=== PATIENT | female | born 1980 | race American Indian/Alaskan Native ===

== ENCOUNTER 2017-07-04 08:39 | Emergency (ER) | payer OTHER ==
[2017-07-04 08:47] VITALS: BP 184/106
[2017-07-04] MEDS ORDERED: FLEXERIL PO ONE (10:53)
--- NOTE | 2017-07-04 10:59 | Emergency Department Report ---
HPI - General Chief Complaint: Extremity Injury, Lower Time Seen by Provider: 07/04/17 10:25 - HPI HPI: She is a 37-year-old female with no medical problems who presents to ED complaining of left foot pain 2 weeks. Patient states that she started experiencing foot pain about 2 weeks ago. She denies any injuries, trauma or falls. She denies loss of sensation to the foot ED Past Medical Hx - Past Medical History Hx Hypertension: Yes Additional medical history: HEART MURMUR/ PE LAST YEAR - Surgical History Additional Surgical History: TUBALECTOMY - Social History Smoking Status: Never Smoker Substance Use Type: None - Medications Home Medications: Home Medications Medication Instructions Recorded Confirmed Last Taken Type Cyclobenzaprine [Flexeril 10 MG 10 mg PO QHS #20 tablet 07/04/17 Unknown Rx TAB] ED Review of Systems ROS: Stated complaint: BOTTOM FOOT SORE Other details as noted in HPI Constitutional: denies: chills, fever Eyes: denies: eye pain, eye discharge, vision change ENT: denies: ear pain, throat pain Respiratory: denies: cough, shortness of breath, wheezing Cardiovascular: denies: chest pain, palpitations Endocrine: no symptoms reported Gastrointestinal: denies: abdominal pain, nausea, diarrhea Genitourinary: denies: urgency, dysuria, discharge Musculoskeletal: denies: back pain, joint swelling, arthralgia Skin: denies: rash, lesions Neurological: denies: headache, weakness, paresthesias Psychiatric: denies: anxiety, depression Hematological/Lymphatic: denies: easy bleeding, easy bruising Physical Exam - Physical Exam Vital Signs: Vital Signs 07/04/17 08:42 Temperature 98.2 F Pulse Rate 95 H Respiratory 18 Rate Blood Pressure 184/106 O2 Sat by Pulse 98 Oximetry Physical Exam: GENERAL: Alert and oriented x3, no apparent distress, Normal Gait, atraumatic. HEAD: Head is normocephalic and a-traumatic. NECK: Supple. Non edematous, No lymphadenopathy or thyromegaly. No C-spine tenderness, full range of motion LUNGS: Symetrical with respiration, No wheezing, no rales or crackles, CTAB. HEART: S1, S2 present, regular rate and rhythm without murmur, no rubs, no gallops. Non tender to palpation EXTREMITIES/MUSCULOSKELETAL: No cyanosis, clubbing, rash, lesions or edema on all lower extremity joints. Full ROM bilaterally. UE/LE Pulses 2+ bilaterally. LE and UE 5+ strength bilaterally, mild tenderness to palpation of the sole of the foot, nontender Achilles. NEUROLOGIC: The patient is cooperative with no focal neurologic deficits. SKIN: Warm and dry, No lesions, No ulceration or induration present. ED Course Vital Signs 07/04/17 08:42 Temperature 98.2 F Pulse Rate 95 H Respiratory 18 Rate Blood Pressure 184/106 O2 Sat by Pulse 98 Oximetry ED Medical Decision Making - Medical Decision Making 39-year-old female presents to ED with left foot pain ED course: Patient received Flexeril in ED. Vital signs are normal patient is in no acute distress Discussed with patient follow-up with primary care physician. I discussed the patient to take her blood pressure medication upon going home. Patient states she will as she has not taken any today. She denies any symptoms such as headache, blurred vision, chest pain Discussed the patient and take medications as prescribed. Patient has no neurological deficit. Patient is alert and oriented 3 and understands all instructions given. Discussed drowsiness effect of Flexeril makes her drowsy and not to operate machinery while taking flexeril Critical care attestation.: If time is entered above; I have spent that time in minutes in the direct care of this critically ill patient, excluding procedure time. ED Disposition Clinical Impression: Foot pain, left Disposition: DC-01 TO HOME OR SELFCARE Is pt being admited?: No Does the pt Need Aspirin: No Condition: Stable Instructions: Arthralgia (ED) Additional Instructions: Make sure to follow up with the primary care physician as discussed. Take all your medications as you've been prescribed. If you have any worsening symptoms or develop new symptoms please return to ED immediately. Prescriptions: Cyclobenzaprine [Flexeril 10 MG TAB] 10 mg PO QHS #20 tablet Referrals: PRIMARY CARE, [Primary Care Provider] - 3-5 Days [facility] [Outside] - 3-5 Days [facility] [Outside] - 3-5 Days [facility] [Outside] - 3-5 Days [facility] [Outside] - 3-5 Days Forms: Work/School Release Form(ED) Time of Disposition: 11:16
== END 2017-07-04 11:27 | disposition home or self-care (01) ==
LOC: ED 08:39
DX: M79.672 Pain in left foot (principal); I10 Essential (primary) hypertension
CPT/HCPCS: 99282

== ENCOUNTER 2017-08-29 05:33 | Emergency (ER) | payer SELFPAY ==
[2017-08-29] MEDS ORDERED: TYLENOL ONE (05:44)
[2017-08-29] MEDS ORDERED: TYLENOL PO ONE (05:50)
--- NOTE | 2017-08-29 09:23 | Emergency Department Report ---
ED Headache HPI - General Chief Complaint: Headache Stated Complaint: STIFF NECK Time Seen by Provider: 08/29/17 08:12 - History of Present Illness Initial Comments: This is a 37-year-old -[place] female presents with headache that is radiating to the neck with nausea that started yesterday while at work. Patient has a history of hypertension and currently take an amlodipine and benazepril. Patient reports began almost completely out of medication and stopped taking blood pressure medications for a couple weeks. She started back taking medication Sunday when she started feeling lightheaded and started having frequent headaches. She is currently taking Tylenol which will help at times but symptoms returned. Patient reports feeling nauseous with headaches and having pain around temporal area and pressure behind eyes. Reports headache is worse with light and with standing. Patient reports feeling dizzy with standing and unable to report to work today due to dizziness. She currently does not have a primary care provider to follow up for refills because she has no insurance. Denies chest pain, shortness of breath, fever, and vomiting. Timing/Duration: 24 hours Quality: constant, pressure, stabbing Head Injury Location: temporal Recent Head Trauma: no recent headache/trauma Modifying Factors: improves with: exposure to light (worse since with exposure to light ), medication (improves with NSAIDs) Associated Symptoms: facial pain, stiff neck, other (dizziness). denies: confusion, fatigue, fever/chills, flushing, loss of consciousness, nausea/ vomiting, nasal congestion, nasal drainage, numbness in legs/feet, rash, seizures, sinus infection, vision changes, weakness Allergies/Adverse Reactions: Allergies No Known Allergies Allergy (Verified 08/29/17 05:48) Home Medications: Ambulatory Orders RX: Cyclobenzaprine [Flexeril 10 MG TAB] 10 mg PO QHS #20 tablet 07/04/17 RX: Benazepril HCl [Lotensin] 40 mg PO DAILY #30 tab 08/29/17 RX: Ibuprofen [Motrin 800 MG tab] 800 mg PO Q8HR PRN #15 tablet 08/29/17 RX: Losartan [Cozaar] 25 mg PO QDAY #30 tablet 08/29/17 RX: amLODIPine [Norvasc] 10 mg PO DAILY #30 tab 08/29/17 ED Review of Systems ROS: Stated complaint: STIFF NECK Other details as noted in HPI Constitutional: denies: chills, fever Respiratory: denies: cough, shortness of breath, wheezing Cardiovascular: denies: chest pain, palpitations Gastrointestinal: nausea. denies: abdominal pain, vomiting, diarrhea Neurological: headache, vertigo. denies: weakness, paresthesias Psychiatric: denies: anxiety, depression ED Past Medical Hx - Past Medical History Hx Hypertension: Yes Additional medical history: HEART MURMUR/ PE LAST YEAR - Surgical History Additional Surgical History: TUBALECTOMY - Social History Smoking Status: Never Smoker - Medications Home Medications: Home Medications Medication Instructions Recorded Confirmed Last Taken Type RX: Cyclobenzaprine [Flexeril 10 10 mg PO QHS #20 tablet 07/04/17 Unknown Rx MG TAB] RX: Benazepril HCl [Lotensin] 40 mg PO DAILY #30 tab 08/29/17 Unknown Rx RX: Ibuprofen [Motrin 800 MG tab] 800 mg PO Q8HR PRN #15 tablet 08/29/17 Unknown Rx RX: Losartan [Cozaar] 25 mg PO QDAY #30 tablet 08/29/17 Unknown Rx RX: amLODIPine [Norvasc] 10 mg PO DAILY #30 tab 08/29/17 Unknown Rx ED Physical Exam - General Limitations: No Limitations General appearance: alert, in no apparent distress - Eye Eye exam: Present: normal appearance, PERRL, EOMI Pupils: Present: normal accommodation - ENT ENT exam: Present: mucous membranes moist - Neck Neck exam: Present: normal inspection. Absent: lymphadenopathy - Respiratory Respiratory exam: Present: normal lung sounds bilaterally. Absent: respiratory distress - Cardiovascular Cardiovascular Exam: Present: regular rate, normal rhythm, normal heart sounds. Absent: systolic murmur, diastolic murmur, rubs, gallop - GI/Abdominal GI/Abdominal exam: Present: soft, normal bowel sounds. Absent: organomegaly, mass - Neurological Exam Neurological exam: Present: alert, oriented X3 - Psychiatric Psychiatric exam: Present: normal affect, normal mood - Skin Skin exam: Present: warm, dry, intact, normal color. Absent: rash ED Course Vital Signs 08/29/17 08/29/17 08/29/17 05:48 09:42 11:14 Temperature 98.3 F 98.2 F Pulse Rate 90 85 87 Respiratory 16 Rate Blood Pressure 151/110 Blood Pressure 186/118 167/102 [Left] Blood Pressure 171/114 165/111 [Right] O2 Sat by Pulse 100 100 100 Oximetry ED Medical Decision Making - Medical Decision Making This is a 37 y.o. female that presents with headache, eye pressure, and nausea for 1 day. History of HTN. Patient is noncompliant with blood pressure medication for a few weeks. She is about to run out of medication and has no insurance to get refills from primary care provider. Patient is stable and was examined by me. Given Tylenol 975 mg by mouth for headache pain and clonidine 0.1 mg by mouth once in the ER. Patient took personal blood pressure medication at 4 AM prior to coming in. Blood pressure is trending down and patient is asymptomatic. Reevaluation reports feeling better, headache has resolved. Refill amlodipine 10 mg by mouth daily and benazepril 50 mg by mouth daily. Start losartan 25 mg by mouth daily and ibuprofen 800 mg po q6h prn # 15. PCP in 3-5 days at [facility]. Critical care attestation.: If time is entered above; I have spent that time in minutes in the direct care of this critically ill patient, excluding procedure time. ED Disposition Clinical Impression: Hypertension, uncontrolled Hypertension Qualifiers: Hypertension type: essential hypertension Qualified Code(s): I10 - Essential ( primary) hypertension Migraine Qualifiers: Migraine type: without aura Status migrainosus presence: without status migrainosus Intractability: not intractable Qualified Code(s): G43.009 - Migraine without aura, not intractable, without status migrainosus Disposition: DC-01 TO HOME OR SELFCARE Is pt being admited?: No Does the pt Need Aspirin: No Condition: Stable Instructions: Migraine Headache (ED), Hypertension (ED) Additional Instructions: Encourage avoid smoking to reduce cardiovascular risk. Moderate caffeine consumption is acceptable. Begin and maintain aerobic exercise, with a goal of at least 30 minutes of moderate intensity, dynamic aerobic exercise (walking, jogging, cycling, or swimming) 5 days per week to total 150 minutes as tolerated or recommended by a physician. Take medication daily as prescribed. Take medication at start of headache. Eat at scheduled times or 3 meals a day with snacks. Follow up with primary care provider in 24-72 hours at [facility]. Prescriptions: RX: amLODIPine [Norvasc] 10 mg PO DAILY #30 tab RX: Benazepril HCl [Lotensin] 40 mg PO DAILY #30 tab RX: Ibuprofen [Motrin 800 MG tab] 800 mg PO Q8HR PRN #15 tablet PRN Reason: Pain RX: Losartan [Cozaar] 25 mg PO QDAY #30 tablet Referrals: [facility] [Outside] - 3-5 Days [facility] [Outside] - 3-5 Days [facility] [Outside] - 3-5 Days Forms: Work/School Release Form(ED) Time of Disposition: 11:34 Print Language: BERMUDIAN
[2017-08-29] MEDS ORDERED: CATAPRES PO ONE (10:01)
[2017-08-29 11:15] VITALS: BP 167/102
== END 2017-08-29 12:01 | disposition home or self-care (01) ==
LOC: ED 05:33
DX: G43.909 Migraine, unspecified, not intractable, without status migrainosus (principal); I10 Essential (primary) hypertension

== ENCOUNTER 2017-10-22 11:16 | Emergency (ER) | payer SELFPAY ==
[2017-10-22] MEDS ORDERED: CATAPRES ONE (11:56)
[2017-10-22] MEDS ORDERED: CATAPRES PO ONE (12:00)
[2017-10-22 12:18] LABS: Hematocrit 33.4 % (30.3-42.9); Hemoglobin 10.6 gm/dl (10.1-14.3); Mean Corpuscular HGB Conc 32 % (30-34); Platelet Count 482 K/mm3 (140-440); Red Blood Count 5.46 M/mm3 (3.65-5.03)
[2017-10-22 12:22] LABS: Mean Corpuscular Hemoglobin 20 pg (28-32); Mean Corpuscular Volume 61 fl (79-97); Red Cell Distribution Width 22.5 % (13.2-15.2)
[2017-10-22] MEDS ORDERED: NORMODYNE IV ONE ×2 (12:41→15:18)
[2017-10-22 12:42] LABS: BUN/Creatinine Ratio 9; Blood Urea Nitrogen 8 mg/dL (7-17); Calcium 8.9 mg/dL (8.4-10.2); Hemolysis Index 5
--- NOTE | 2017-10-22 12:48 | Emergency Department Report ---
HPI - General Chief Complaint: High BP Time Seen by Provider: 10/22/17 12:27 - HPI HPI: 37-year-old female presents to the emergency department with complaint of uncontrolled blood pressure despite medication compliance. She also complains of chronic left foot pain that has been going on for the past few months. The patient is on benazepril, amlodipine, hydrochlorothiazide and labetalol and she seems to be at the highest doses of these medications. She has been taking her blood pressure and keeping a blood pressure log and says that her blood pressure has remained elevated and therefore on certain days she doubles up on some not all of these medications. Patient says that she has had a left foot evaluated in the past and the pain is mostly in the middle bottom portion of the foot and then going back towards the heel. She says that she walks around on her feet all day but otherwise denies any trauma. She denies any chest pain, headache, vision change, shortness of breath. She's been taking Aleve for the foot pain without much relief. She is trying to get in with [facility] but does not have an appointment until the end of the month. She denies any tobacco or illicit drug use or abuse. ED Past Medical Hx - Past Medical History Previous Medical History?: Yes Hx Hypertension: Yes Additional medical history: HEART MURMUR/ PE LAST YEAR. PCOS - Surgical History Past Surgical History?: Yes Additional Surgical History: TUBALECTOMY - Social History Smoking Status: Never Smoker Substance Use Type: None - Medications Home Medications: Home Medications Medication Instructions Recorded Confirmed Last Taken Type Benazepril HCl [Lotensin] 40 mg PO DAILY #30 tab 10/22/17 Unknown Rx HYDROcodone/APAP 5-325 [[place] 1 each PO Q6HR PRN #10 tablet 10/22/17 Unknown Rx 5/325] Hydrochlorothiazide [HCTZ] 25 mg PO QDAY #30 tablet 10/22/17 Unknown Rx Labetalol [Normodyne TAB] 100 mg PO BID #60 tablet 10/22/17 Unknown Rx amLODIPine [Norvasc] 10 mg PO DAILY #30 tab 10/22/17 Unknown Rx ED Review of Systems ROS: Stated complaint: MIDDLE BACK PAIN Other details as noted in HPI Comment: All other systems reviewed and negative Constitutional: denies: chills, fever Eyes: denies: eye pain, eye discharge, vision change ENT: denies: ear pain, throat pain Respiratory: denies: cough, shortness of breath, wheezing Cardiovascular: denies: chest pain, palpitations Gastrointestinal: denies: abdominal pain, nausea, diarrhea Genitourinary: denies: urgency, dysuria, discharge Musculoskeletal: arthralgia. denies: joint swelling Skin: denies: rash, lesions Neurological: denies: headache, weakness, paresthesias Physical Exam - Physical Exam Vital Signs: Vital Signs 10/22/17 10/22/17 10/22/17 11:45 12:01 12:20 Temperature 98.4 F 98.4 F Pulse Rate 94 H 94 H 86 Respiratory 16 16 Rate Blood Pressure 200/128 200/128 Blood Pressure 183/115 [Left] O2 Sat by Pulse 99 98 Oximetry Physical Exam: GENERAL: The patient is well-developed well-nourished. HENT: Normocephalic. Atraumatic. Patient has moist mucous membranes. EYES: Extraocular motions are intact. Pupils equal reactive to light bilaterally. NECK: Supple. Trachea is midline. CHEST/LUNGS: Clear to auscultation. There is no respiratory distress noted. HEART/CARDIOVASCULAR: Regular. There is no tachycardia. There is no murmur. ABDOMEN: Abdomen is soft, nontender. Patient has normal bowel sounds. Morbidly obese habitus. SKIN: Skin is warm and dry. NEURO: The patient is awake, alert, and oriented. The patient is cooperative. The patient has no focal neurologic deficits. The patient has normal speech. MUSCULOSKELETAL: There is some tenderness to palpation along the plantar portion of the left foot from the mid foot to the heel. No obvious deformity.. There is no limitation range of motion. ED Course Vital Signs 10/22/17 10/22/17 10/22/17 11:45 12:01 12:20 Temperature 98.4 F 98.4 F Pulse Rate 94 H 94 H 86 Respiratory 16 16 Rate Blood Pressure 200/128 200/128 Blood Pressure 183/115 [Left] O2 Sat by Pulse 99 98 Oximetry ED Medical Decision Making - Lab Data Result diagrams: 10/22/17 12:00 10/22/17 12:00 - EKG Data -: EKG Interpreted by Ri EKG shows normal: sinus rhythm, axis, intervals, QRS complexes, ST-T waves Rate: normal - EKG Data When compared to previous EKG there are: previous EKG unavailable Interpretation: normal EKG - Radiology Data Radiology results: image reviewed interpreted by me: Chest x-ray does not show any acute process. There are no pleural effusions, obvious pneumonia and there is no pneumothorax. X-ray of left foot does not show any fracture, desiccation and a acute process. - Medical Decision Making Patient presents with complaints of left foot pain has been going on for months as well as uncontrolled blood pressure. X-ray of the left foot does not show any fracture, dislocation or any acute process. There is some reproducible tenderness to palpation along the plantar portion of the foot. Symptoms sound consistent with plantar fasciitis. She will be given some pain medication and a referral for podiatry. Patient's blood pressure was quite elevated. She had an EKG that did not show any signs of ST elevation [place] or dysrhythmia or ischemia. Chest x-ray did not show any acute process. Patient's labs were also unremarkable. She was given a few doses of antihypertensive medication with some improvement. She has no chest pain, shortness of breath, headache or any other acute complaints at this time. She has an appointment scheduled for [facility]. We discussed possible lifestyle and/or dietary changes to make, keeping a blood pressure log. She will return to the ER with any worsening of her symptoms or any acute distress. She understands and agrees the plan. - Differential Diagnosis arthritis, plantar fasciitis, tendinitis Critical Care Time: No Critical care attestation.: If time is entered above; I have spent that time in minutes in the direct care of this critically ill patient, excluding procedure time. ED Disposition Clinical Impression: Left foot pain, Plantar fasciitis of left foot Hypertension Qualifiers: Hypertension type: essential hypertension Qualified Code(s): I10 - Essential ( primary) hypertension Disposition: DC-01 TO HOME OR SELFCARE Is pt being admited?: No Condition: Stable Instructions: Plantar Fasciitis (ED), Hypertension (ED) Additional Instructions: Please follow up with a primary care physician as soon as possible. I have given her a referral for a local staff educator, Dr. Loving, regarding your elevated blood pressure. I have given you a referral for a local underwater trapper, Dr. Carlos, regarding your foot pain and suspicion of plantar fasciitis. Return to the emergency Department with any worsening of your symptoms or any acute distress. Try and stay away from foods that are high in salt and caffeinated products to help with your blood pressure. Keep a blood pressure log. You have been prescribed a medication that is sedating and therefore should not be taken prior to driving, working, and responsible for children and in no way should be mixed with alcohol of any quantity. Prescriptions: amLODIPine [Norvasc] 10 mg PO DAILY #30 tab Benazepril HCl [Lotensin] 40 mg PO DAILY #30 tab Hydrochlorothiazide [HCTZ] 25 mg PO QDAY #30 tablet HYDROcodone/APAP 5-325 [[place] 5/325] 1 each PO Q6HR PRN #10 tablet PRN Reason: Pain Labetalol [Normodyne TAB] 100 mg PO BID #60 tablet Referrals: SHAYY LOVING MD [Staff Physician] - 2-3 Days ELIAZBETH CARLOS DPM [Staff Physician] - 2-3 Days [facility] Time of Disposition: 16:18
[2017-10-22 13:26] LABS: Anisocytosis 2+; Basophils % (Manual) 0 % (0.0-1.8); Hypochromasia 2+; Total Cells Counted 100
[2017-10-22 13:27] LABS: Platelet Estimate Cons; Poikilocytosis 1+; Target Cells 1+; Tear Drop Cells Few
--- NOTE | 2017-10-22 13:39 | XRay Report ---
AP CHEST: HISTORY: Shortness of breath AP view of the chest demonstrates a normal mediastinal and cardiac contour with clear lungs and normal bony and soft tissue structures. IMPRESSION: Unremarkable AP chest.
--- NOTE | 2017-10-22 14:07 | XRay Report ---
LEFT FOOT, 3 views: History: Foot pain. The bony architecture is intact. Bony alignment is normal. No soft tissue abnormalities are seen. The joint spaces appear preserved. Moderate plantar spur is identified. IMPRESSION: Plantar spur.
[2017-10-22 17:07] VITALS: BP 148/103
== END 2017-10-22 17:07 | disposition home or self-care (01) ==
LOC: ED 11:16
DX: I10 Essential (primary) hypertension (principal); M72.2 Plantar fascial fibromatosis; Z90.79 Acquired absence of other genital organ(s)
CPT/HCPCS: 36415; 71045; 80048; 84484; 84703; 85007; 85025; 93005; 93010; 96374; 96376

== ENCOUNTER 2017-11-18 09:49 | Emergency (ER) | payer SELFPAY ==
[2017-11-18 10:02] VITALS: BP 178/110
[2017-11-18] MEDS ORDERED: MOTRIN PO ONE (10:20)
--- NOTE | 2017-11-18 10:25 | Emergency Department Report ---
ED ENT HPI - General Chief complaint: Dental/Oral Stated complaint: LT FACE PAIN Time Seen by Provider: 11/18/17 10:14 Source: patient Mode of arrival: Ambulatory Limitations: No Limitations - History of Present Illness Initial comments: This is a 37-year-old female nontoxic, well nourished in appearance, no acute signs of distress presents to the ED with c/o of right upper toothache 3 days. Patient denies following up with a dentist. Patient stated she believes she has an abscess. Patient stated that pain radiates from his job to his right side of head. Patient otherwise denies any head trauma. Patient describes toothache as aching level of 8 out of 10. Patient denies any facial swelling. Patient denies any numbness, tingling, fever, chills, headache, stiff neck, abdominal pain, chest pain, shortness of breath. Patient denies any drug allergies or significant past medical history. MD complaint: tooth pain -: days(s) (3) Location: tooth # 1 - pain here Severity: mild Severity scale (0 -10): 8 Quality: aching Consistency: constant Improves with: none Worsens with: none Context- Dental: history of dental caries, poor dental care Associated Symptoms: gum swelling, toothache. denies: fever, cough, pain with swallowing, sore throat, tinnitus, hearing loss, discharge from ear, rhinorrhea - Related Data Previous Rx's Medication Instructions Recorded Last Taken Type Benazepril HCl [Lotensin] 40 mg PO DAILY #30 tab 10/22/17 Unknown Rx HYDROcodone/APAP 5-325 [Percy 1 each PO Q6HR PRN #10 tablet 10/22/17 Unknown Rx 5/325] Labetalol [Normodyne TAB] 100 mg PO BID #60 tablet 10/22/17 Unknown Rx amLODIPine [Norvasc] 10 mg PO DAILY #30 tab 10/22/17 Unknown Rx hydroCHLOROthiazide [HCTZ] 25 mg PO QDAY #30 tablet 10/22/17 Unknown Rx Acetaminophen/Codeine [Tylenol 1 tab PO Q6H PRN #12 tab 11/18/17 Unknown Rx /Codeine # 3 tab] Amoxicillin/K Clav Tab [Augmentin 1 tab PO Q12HR #20 tab 11/18/17 Unknown Rx 875 mg] Chlorhexidine Mouthwash [Peridex] 15 ml MM BID #1 bottle 11/18/17 Unknown Rx Ibuprofen [Motrin] 600 mg PO Q8H PRN #30 tablet 11/18/17 Unknown Rx Allergies Allergy/AdvReac Type Severity Reaction Status Date / Time No Known Allergies Allergy Verified 08/29/17 05:48 ED Dental HPI - General Chief complaint: Dental/Oral Stated complaint: LT FACE PAIN Time Seen by Provider: 11/18/17 10:14 Source: patient Mode of arrival: Ambulatory Limitations: No Limitations - Related Data Previous Rx's Medication Instructions Recorded Last Taken Type Benazepril HCl [Lotensin] 40 mg PO DAILY #30 tab 10/22/17 Unknown Rx HYDROcodone/APAP 5-325 [Percy 1 each PO Q6HR PRN #10 tablet 10/22/17 Unknown Rx 5/325] Labetalol [Normodyne TAB] 100 mg PO BID #60 tablet 10/22/17 Unknown Rx amLODIPine [Norvasc] 10 mg PO DAILY #30 tab 10/22/17 Unknown Rx hydroCHLOROthiazide [HCTZ] 25 mg PO QDAY #30 tablet 10/22/17 Unknown Rx Acetaminophen/Codeine [Tylenol 1 tab PO Q6H PRN #12 tab 11/18/17 Unknown Rx /Codeine # 3 tab] Amoxicillin/K Clav Tab [Augmentin 1 tab PO Q12HR #20 tab 11/18/17 Unknown Rx 875 mg] Chlorhexidine Mouthwash [Peridex] 15 ml MM BID #1 bottle 11/18/17 Unknown Rx Ibuprofen [Motrin] 600 mg PO Q8H PRN #30 tablet 11/18/17 Unknown Rx Allergies Allergy/AdvReac Type Severity Reaction Status Date / Time No Known Allergies Allergy Verified 08/29/17 05:48 ED Review of Systems ROS: Stated complaint: LT FACE PAIN Other details as noted in HPI Constitutional: denies: chills, fever Eyes: denies: eye pain, eye discharge, vision change ENT: dental pain. denies: ear pain, throat pain Respiratory: denies: cough, shortness of breath, wheezing Cardiovascular: denies: chest pain, palpitations Endocrine: no symptoms reported Gastrointestinal: denies: abdominal pain, nausea, diarrhea Genitourinary: denies: urgency, dysuria, discharge Musculoskeletal: denies: back pain, joint swelling, arthralgia Skin: denies: rash, lesions Neurological: denies: headache, weakness, paresthesias Psychiatric: denies: anxiety, depression Hematological/Lymphatic: denies: easy bleeding, easy bruising ED Past Medical Hx - Past Medical History Previous Medical History?: Yes Hx Hypertension: Yes Additional medical history: HEART MURMUR/ PE LAST YEAR. PCOS - Surgical History Past Surgical History?: Yes Additional Surgical History: TUBALECTOMY - Social History Smoking Status: Never Smoker Substance Use Type: None - Medications Home Medications: Home Medications Medication Instructions Recorded Confirmed Last Taken Type Benazepril HCl [Lotensin] 40 mg PO DAILY #30 tab 10/22/17 Unknown Rx HYDROcodone/APAP 5-325 [Percy 1 each PO Q6HR PRN #10 tablet 10/22/17 Unknown Rx 5/325] Labetalol [Normodyne TAB] 100 mg PO BID #60 tablet 10/22/17 Unknown Rx amLODIPine [Norvasc] 10 mg PO DAILY #30 tab 10/22/17 Unknown Rx hydroCHLOROthiazide [HCTZ] 25 mg PO QDAY #30 tablet 10/22/17 Unknown Rx Acetaminophen/Codeine [Tylenol 1 tab PO Q6H PRN #12 tab 11/18/17 Unknown Rx /Codeine # 3 tab] Amoxicillin/K Clav Tab [Augmentin 1 tab PO Q12HR #20 tab 11/18/17 Unknown Rx 875 mg] Chlorhexidine Mouthwash [Peridex] 15 ml MM BID #1 bottle 11/18/17 Unknown Rx Ibuprofen [Motrin] 600 mg PO Q8H PRN #30 tablet 11/18/17 Unknown Rx ED Physical Exam - General Limitations: No Limitations General appearance: alert, in no apparent distress - Head Head exam: Present: atraumatic, normocephalic - Eye Eye exam: Present: normal appearance Pupils: Present: normal accommodation - ENT ENT exam: Present: normal orophraynx, mucous membranes moist - Expanded ENT Exam Expanded Ear exam: Present: normal external inspection Mouth exam: Present: normal external inspection, tongue normal. Absent: drooling, trismus, muffled voice, tongue elevation, laceration Teeth exam: Present: dental caries, fractured tooth #, dental tenderness #, gingival enlargement, other (no facial swelling. No abscess seen.) Throat exam: Positive: normal inspection, other (Uvual midline.). Negative: tonsillar erythema, tonsillomegaly, tonsillar exudate, R peritonsillar mass, L peritonsillar mass - Neck Neck exam: Present: normal inspection, full ROM. Absent: tenderness, meningismus, lymphadenopathy - Respiratory Respiratory exam: Present: normal lung sounds bilaterally. Absent: respiratory distress, wheezes, rales, rhonchi, stridor, chest wall tenderness, accessory muscle use, decreased breath sounds, prolonged expiratory - Cardiovascular Cardiovascular Exam: Present: regular rate, normal rhythm, normal heart sounds. Absent: irregular rhythm, systolic murmur, diastolic murmur, rubs, gallop - GI/Abdominal GI/Abdominal exam: Present: soft, normal bowel sounds - Extremities Exam Extremities exam: Present: normal inspection - Back Exam Back exam: Present: normal inspection - Neurological Exam Neurological exam: Present: alert, oriented X3 - Psychiatric Psychiatric exam: Present: normal affect, normal mood - Skin Skin exam: Present: warm, dry, intact, normal color. Absent: rash ED Course Vital Signs 11/18/17 10:00 Temperature 98.8 F Pulse Rate 96 H Respiratory 16 Rate Blood Pressure 178/110 O2 Sat by Pulse 98 Oximetry - Reevaluation(s) Reevaluation #1: 11/18/17 10:23 Patient is speaking in full sentences with no signs of distress noted. Critical care attestation.: If time is entered above; I have spent that time in minutes in the direct care of this critically ill patient, excluding procedure time. ED Disposition Clinical Impression: Dental caries, Gingivitis Disposition: DC-01 TO HOME OR SELFCARE Is pt being admited?: No Does the pt Need Aspirin: No Condition: Stable Instructions: Dental Caries (ED), Gingivitis (ED), Acetaminophen/Codeine (By mouth) Additional Instructions: Follow-up with a Dentist doctor in 3-5 days or if symptoms worsen and continue return to emergency room as soon as possible. Do not operate any machinery while taking Tylenol with codeine as this may cause drowsiness. Prescriptions: Acetaminophen/Codeine [Tylenol /Codeine # 3 tab] 1 tab PO Q6H PRN #12 tab PRN Reason: Pain , Severe (7-10) Amoxicillin/K Clav Tab [Augmentin 875 mg] 1 tab PO Q12HR #20 tab Chlorhexidine Mouthwash [Peridex] 15 ml MM BID #1 bottle Ibuprofen [Motrin] 600 mg PO Q8H PRN #30 tablet PRN Reason: Pain Referrals: PRIMARY CARE, [Referring] - 3-5 Days THIAGO COBURN MD [Staff Physician] - 3-5 Days [facility] [Outside] - 3-5 Days Forms: Work/School Release Form(ED)
== END 2017-11-18 10:33 | disposition home or self-care (01) ==
LOC: ED 09:49
DX: K02.9 Dental caries, unspecified (principal); K05.10 Chronic gingivitis, plaque induced; I10 Essential (primary) hypertension
CPT/HCPCS: 99282

== ENCOUNTER 2018-11-01 07:07 | Emergency (ER) | payer SELFPAY ==
[2018-11-01 07:19] VITALS: BP 166/94
--- NOTE | 2018-11-01 08:26 | Emergency Department Report ---
ED General Adult HPI - General Chief complaint: Allergic Reaction Stated complaint: ALLERGIC REACTION TO MEDS Time Seen by Provider: 11/01/18 07:51 Source: patient Mode of arrival: Ambulatory Limitations: No Limitations - History of Present Illness Initial comments: 38-year-old -[place] female status post department complaining of having possible reactions to medication. She started on losartan and labetalol for her hypertension. She has no history of hypertension. She takes hydrochlorothiazide and amlodipine. He was recently started on these previous the mentioned medications. She did take the medications as prescribed for the past 2 or 3 days and on yesterday in the evening she developed a cold, clammy, sweaty type sensation and some presyncope which lasted for several minutes, but she is unsure of what her blood sugar blood pressure was at that time. She is suspicious for having a reaction to the medication and seeks further guidance o treatment options. She hassymptoms at present. She reports no swollen lips, no coughing, no chest pain, no palpitations, no nausea no vomiting -: Sudden Radiation: non-radiation Improves with: none Worsens with: none Associated Symptoms: denies other symptoms - Related Data Previous Rx's Medication Instructions Recorded Last Taken Type Amoxicillin [Amoxicillin CAP] 250 mg PO Q8H #30 capsule 01/15/18 Unknown Rx Aspirin [Aspirin BABY CHEW TAB] 81 mg PO QDAY #30 tab.chew 01/15/18 Unknown Rx AtorvaSTATin [Lipitor] 40 mg PO QHS #30 tablet 01/15/18 Unknown Rx Famotidine [Pepcid] 20 mg PO BID #60 tablet 01/15/18 Unknown Rx Labetalol [Labetalol 100mg TAB] 300 mg PO Q8H #90 tablet 01/15/18 Unknown Rx Losartan [Cozaar] 100 mg PO QDAY #30 tablet 01/15/18 Unknown Rx Meclizine [Antivert] 25 mg PO Q8H PRN #30 tablet 01/15/18 Unknown Rx amLODIPine [Norvasc] 10 mg PO DAILY #30 tab 01/15/18 Unknown Rx hydroCHLOROthiazide [HCTZ] 25 mg PO QDAY #30 tablet 01/15/18 Unknown Rx metroNIDAZOLE [Flagyl TAB] 250 mg PO Q8H #30 tablet 01/15/18 Unknown Rx oxyCODONE /ACETAMINOPHEN [Percocet 1 tab PO Q6H PRN #10 tablet 01/15/18 Unknown Rx 5/325 mg] Allergies Allergy/AdvReac Type Severity Reaction Status Date / Time No Known Allergies Allergy Verified 08/29/17 05:48 ED Review of Systems ROS: Stated complaint: ALLERGIC REACTION TO MEDS Other details as noted in HPI Comment: All other systems reviewed and negative ED Past Medical Hx - Past Medical History Previous Medical History?: Yes Hx Hypertension: Yes Hx Congestive Heart Failure: No Hx Diabetes: No Hx Pulmonary Embolism: Yes Hx Asthma: No Hx COPD: No Additional medical history: HEART MURMUR/ PE LAST YEAR. PCOS, Morbid Obesity - Surgical History Past Surgical History?: Yes Additional Surgical History: TUBALECTOMY - Social History Smoking Status: Never Smoker - Medications Home Medications: Home Medications Medication Instructions Recorded Confirmed Last Taken Type Amoxicillin [Amoxicillin CAP] 250 mg PO Q8H #30 capsule 01/15/18 Unknown Rx Aspirin [Aspirin BABY CHEW TAB] 81 mg PO QDAY #30 tab.chew 01/15/18 Unknown Rx AtorvaSTATin [Lipitor] 40 mg PO QHS #30 tablet 01/15/18 Unknown Rx Famotidine [Pepcid] 20 mg PO BID #60 tablet 01/15/18 Unknown Rx Labetalol [Labetalol 100mg TAB] 300 mg PO Q8H #90 tablet 01/15/18 Unknown Rx Losartan [Cozaar] 100 mg PO QDAY #30 tablet 01/15/18 Unknown Rx Meclizine [Antivert] 25 mg PO Q8H PRN #30 tablet 01/15/18 Unknown Rx amLODIPine [Norvasc] 10 mg PO DAILY #30 tab 01/15/18 Unknown Rx hydroCHLOROthiazide [HCTZ] 25 mg PO QDAY #30 tablet 01/15/18 Unknown Rx metroNIDAZOLE [Flagyl TAB] 250 mg PO Q8H #30 tablet 01/15/18 Unknown Rx oxyCODONE /ACETAMINOPHEN [Percocet 1 tab PO Q6H PRN #10 tablet 01/15/18 Unknown Rx 5/325 mg] ED Physical Exam - General Limitations: No Limitations General appearance: alert, in no apparent distress - Head Head exam: Present: atraumatic, normocephalic - Eye Eye exam: Present: normal appearance - ENT ENT exam: Present: mucous membranes moist - Neck Neck exam: Present: normal inspection - Respiratory Respiratory exam: Present: normal lung sounds bilaterally. Absent: respiratory distress - Cardiovascular Cardiovascular Exam: Present: regular rate, normal rhythm. Absent: systolic murmur, diastolic murmur, rubs, gallop - GI/Abdominal GI/Abdominal exam: Present: soft, normal bowel sounds - Extremities Exam Extremities exam: Present: normal inspection - Back Exam Back exam: Present: normal inspection - Neurological Exam Neurological exam: Present: alert, oriented X3 - Psychiatric Psychiatric exam: Present: normal affect, normal mood - Skin Skin exam: Present: warm, dry, intact, normal color. Absent: rash ED Course Vital Signs 11/01/18 07:17 Temperature 98.1 F Pulse Rate 73 Respiratory 18 Rate Blood Pressure 166/94 O2 Sat by Pulse 98 Oximetry ED Medical Decision Making - Medical Decision Making 38-year-old full female with a likely reaction to medication issues with cramping pain which may be related to the losaran howerver may be unlikely in this early interaction with the medication. Advised of the need to evaluate her blood sugars. Blood pressure: She is experiencing the symptoms to increase her hydration and potassium intake as well. Follow-up with primary provider for reevaluation of these medications. She has not had any angioedema type symptomology or any coughing. Critical care attestation.: If time is entered above; I have spent that time in minutes in the direct care of this critically ill patient, excluding procedure time. ED Disposition Clinical Impression: Medication reaction Disposition: DC-01 TO HOME OR SELFCARE Is pt being admited?: No Does the pt Need Aspirin: No Condition: Stable Instructions: How to Take a Blood Pressure (ED), How to Check Your Blood Sugar (ED), DASH Eating Plan (ED), Hypertension (ED) Additional Instructions: Please be sure to evaluate her blood pressure and blood sugar at the time, we are having these new episodes of filling presyncope and clammy. Please consult her primary care provider for any adjustments of her hypertensive medication as we discussed some for the time being and take labetalol 2 times per day versus 3 times per day. Referrals: RONIT FAM MD [Primary Care Provider] - 3-5 Days
== END 2018-11-01 08:38 | disposition home or self-care (01) ==
LOC: ED 07:07
DX: T50.905A Adverse effect of unspecified drugs, medicaments and biological substances, initial encounter (principal); I10 Essential (primary) hypertension; Z90.89 Acquired absence of other organs; E28.2 Polycystic ovarian syndrome; E66.01 Morbid (severe) obesity due to excess calories; Z68.44 Body mass index [BMI] 60.0-69.9, adult; Z79.899 Other long term (current) drug therapy; Y92.9 Unspecified place or not applicable
CPT/HCPCS: 99282

== ENCOUNTER 2019-01-20 08:42 | Emergency (ER) | payer SELFPAY ==
--- NOTE | 2019-01-20 09:50 | Emergency Department Report ---
ED General Adult HPI - General Chief complaint: Neuro Symptoms/Deficit Stated complaint: HEADACHE/NAUSEA/BLUR VISION Time Seen by Provider: 01/20/19 09:49 Source: patient Mode of arrival: Ambulatory Limitations: No Limitations - History of Present Illness Initial comments: 38 yo female comes to ER with a/c headache. Associated with blurred vision. 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 ambulatory to the ER -: Gradual, days(s) Location: head Consistency: constant Improves with: none Worsens with: none Associated Symptoms: denies other symptoms - Related Data Previous Rx's Medication Instructions Recorded Last Taken Type Amoxicillin [Amoxicillin CAP] 250 mg PO Q8H #30 capsule 01/15/18 Unknown Rx Aspirin [Aspirin BABY CHEW TAB] 81 mg PO QDAY #30 tab.chew 01/15/18 Unknown Rx AtorvaSTATin [Lipitor] 40 mg PO QHS #30 tablet 01/15/18 Unknown Rx Famotidine [Pepcid] 20 mg PO BID #60 tablet 01/15/18 Unknown Rx Losartan [Cozaar] 100 mg PO QDAY #30 tablet 01/15/18 Unknown Rx Meclizine [Antivert] 25 mg PO Q8H PRN #30 tablet 01/15/18 Unknown Rx amLODIPine 10 mg PO DAILY #30 tab 01/15/18 Unknown Rx hydroCHLOROthiazide [HCTZ] 25 mg PO QDAY #30 tablet 01/15/18 Unknown Rx labetaloL [Labetalol 100mg TAB] 300 mg PO Q8H #90 tablet 01/15/18 Unknown Rx metroNIDAZOLE [Flagyl TAB] 250 mg PO Q8H #30 tablet 01/15/18 Unknown Rx oxyCODONE /ACETAMINOPHEN [Percocet 1 tab PO Q6H PRN #10 tablet 01/15/18 Unknown Rx 5/325 mg] Butalb/Acetaminophen/Caffeine 1 cap PO Q6HR PRN #9 cap 01/20/19 Unknown Rx [Fioricet 50-300-40 mg CAP] predniSONE [Deltasone] 20 mg PO DAILY #5 tablet 01/20/19 Unknown Rx Allergies Allergy/AdvReac Type Severity Reaction Status Date / Time No Known Allergies Allergy Verified 08/29/17 05:48 ED Review of Systems ROS: Stated complaint: HEADACHE/NAUSEA/BLUR VISION Other details as noted in HPI Comment: All other systems reviewed and negative ED Past Medical Hx - Past Medical History Previous Medical History?: Yes Hx Hypertension: Yes Hx Congestive Heart Failure: No Hx Diabetes: No Hx Pulmonary Embolism: Yes Hx Asthma: No Hx COPD: No Additional medical history: HEART MURMUR/ PE LAST YEAR. PCOS, Morbid Obesity - Surgical History Past Surgical History?: Yes Additional Surgical History: TUBALECTOMY - Family History Family history: no significant - Social History Smoking Status: Never Smoker Substance Use Type: None - Medications Home Medications: Home Medications Medication Instructions Recorded Confirmed Last Taken Type Amoxicillin [Amoxicillin CAP] 250 mg PO Q8H #30 capsule 01/15/18 Unknown Rx Aspirin [Aspirin BABY CHEW TAB] 81 mg PO QDAY #30 tab.chew 01/15/18 Unknown Rx AtorvaSTATin [Lipitor] 40 mg PO QHS #30 tablet 01/15/18 Unknown Rx Famotidine [Pepcid] 20 mg PO BID #60 tablet 01/15/18 Unknown Rx Losartan [Cozaar] 100 mg PO QDAY #30 tablet 01/15/18 Unknown Rx Meclizine [Antivert] 25 mg PO Q8H PRN #30 tablet 01/15/18 Unknown Rx amLODIPine 10 mg PO DAILY #30 tab 01/15/18 Unknown Rx hydroCHLOROthiazide [HCTZ] 25 mg PO QDAY #30 tablet 01/15/18 Unknown Rx labetaloL [Labetalol 100mg TAB] 300 mg PO Q8H #90 tablet 01/15/18 Unknown Rx metroNIDAZOLE [Flagyl TAB] 250 mg PO Q8H #30 tablet 01/15/18 Unknown Rx oxyCODONE /ACETAMINOPHEN [Percocet 1 tab PO Q6H PRN #10 tablet 01/15/18 Unknown Rx 5/325 mg] Butalb/Acetaminophen/Caffeine 1 cap PO Q6HR PRN #9 cap 01/20/19 Unknown Rx [Fioricet 50-300-40 mg CAP] predniSONE [Deltasone] 20 mg PO DAILY #5 tablet 01/20/19 Unknown Rx ED Physical Exam - General Limitations: No Limitations General appearance: alert, in no apparent distress - Head Head exam: Present: atraumatic, normocephalic - Eye Eye exam: Present: normal appearance - ENT ENT exam: Present: mucous membranes moist - Neck Neck exam: Present: normal inspection - Respiratory Respiratory exam: Present: normal lung sounds bilaterally. Absent: respiratory distress - Cardiovascular Cardiovascular Exam: Present: regular rate, normal rhythm. Absent: systolic murmur, diastolic murmur, rubs, gallop - GI/Abdominal GI/Abdominal exam: Present: soft, normal bowel sounds - Extremities Exam Extremities exam: Present: normal inspection - Back Exam Back exam: Present: normal inspection - Neurological Exam Neurological exam: Present: alert, oriented X3 - Psychiatric Psychiatric exam: Present: normal affect, normal mood - Skin Skin exam: Present: warm, dry, intact, normal color. Absent: rash ED Course Vital Signs 01/20/19 01/20/19 08:54 11:30 Temperature 97.8 F Pulse Rate 74 73 Respiratory 18 Rate Blood Pressure 176/107 154/94 Blood Pressure 154/94 [Left] O2 Sat by Pulse 100 Oximetry ED Medical Decision Making - Lab Data Result diagrams: 01/20/19 10:08 01/20/19 10:08 - Radiology Data Radiology results: report reviewed, image reviewed - Medical Decision Making Labs 01/20/19 01/20/19 01/20/19 10:08 10:08 10:08 WBC 5.9 RBC 5.42 H Hgb 11.3 Hct 35.5 MCV 66 L MCH 21 L MCHC 32 RDW 19.5 H Plt Count 497 H Sodium 138 Potassium 4.2 Chloride 104.1 Carbon Dioxide 23 Anion Gap 15 BUN 10 Creatinine 0.8 Estimated GFR > 60 BUN/Creatinine Ratio 13 Glucose 105 H Calcium 9.2 HCG, Qual Negative Urine Color Urine Turbidity Urine pH Ur Specific [place] Urine Protein Urine Glucose (UA) Urine Ketones Urine Blood Urine Nitrite Ur Reducing Substances Urine Bilirubin Urine Ictotest Urine Urobilinogen Ur Leukocyte Esterase Urine WBC (Auto) Urine RBC (Auto) U Epithel Cells (Auto) Urine Bacteria (Auto) Urine HCG, Qual 01/20/19 10:51 WBC RBC Hgb Hct MCV MCH MCHC RDW Plt Count Sodium Potassium Chloride Carbon Dioxide Anion Gap BUN Creatinine Estimated GFR BUN/Creatinine Ratio Glucose Calcium HCG, Qual Urine Color Yellow Urine Turbidity Clear Urine pH 6.0 Ur Specific [place] 1.010 Urine Protein 30 mg/dl Urine Glucose (UA) Negative Urine Ketones S Urine Blood Small A Urine Nitrite Negative Ur Reducing Substances Not Reportable Urine Bilirubin Negative Urine Ictotest Not Reportable Urine Urobilinogen 0.2 Ur Leukocyte Esterase Negative Urine WBC (Auto) 5.0 Urine RBC (Auto) 2.0 U Epithel Cells (Auto) 10.0 Urine Bacteria (Auto) 1+ Urine HCG, Qual Negative Vital Signs 01/20/19 01/20/19 08:54 11:30 Temperature 97.8 F Pulse Rate 74 73 Respiratory 18 Rate Blood Pressure 176/107 154/94 Blood Pressure 154/94 [Left] O2 Sat by Pulse 100 Oximetry no focal neuro def labs noted ct noted medicated for pain with relief of pain and dec in bp dc home with dc plan of care and follow up Critical care attestation.: If time is entered above; I have spent that time in minutes in the direct care of this critically ill patient, excluding procedure time. ED Disposition Clinical Impression: Headache, History of chronic hypertension Disposition: DC-01 TO HOME OR SELFCARE Is pt being admited?: No Does the pt Need Aspirin: No Condition: Stable Additional Instructions: low salt diet meds as ordered today ALL labs and CT normal today Prescriptions: predniSONE [Deltasone] 20 mg PO DAILY #5 tablet Butalb/Acetaminophen/Caffeine [Fioricet 50-300-40 mg CAP] 1 cap PO Q6HR PRN #9 cap PRN Reason: Pain, Moderate (4-6) Referrals: PRIMARY CARE, [Primary Care Provider] - 3-5 Days [facility] [Outside] - 3-5 Days Forms: Work/School Release Form(ED) Time of Disposition: 11:25
[2019-01-20 10:27] LABS: Hematocrit 35.5 % (30.3-42.9); Hemoglobin 11.3 gm/dl (10.1-14.3); Mean Corpuscular HGB Conc 32 % (30-34); Platelet Count 497 K/mm3 (140-440); Red Blood Count 5.42 M/mm3 (3.65-5.03); Red Cell Distribution Width 19.5 % (13.2-15.2)
[2019-01-20 10:28] LABS: Mean Corpuscular Volume 66 fl (79-97)
[2019-01-20] MEDS ORDERED: BUTALB/ACETAMINOPHEN/CAFFEINE TAB PO ONE (10:50)
[2019-01-20] MEDS ORDERED: KETOROLAC 60 MG/2 ML INJ IM ONE (10:50)
[2019-01-20 10:51] LABS: BUN/Creatinine Ratio 13; Blood Urea Nitrogen 10 mg/dL (7-17); Calcium 9.2 mg/dL (8.4-10.2); Hemolysis Index 7
[2019-01-20] MEDS ORDERED: cloNIDine 0.1 MG TAB PO ONE (10:51)
--- NOTE | 2019-01-20 11:14 | Cat Scan Report ---
CT HEAD WITHOUT CONTRAST INDICATION / CLINICAL INFORMATION: blurry vision. Dizziness for 24 hours TECHNIQUE: Axial imaging performed from the skull apex through the skull base without the use of cont rast. Sagittal and coronal reformatted images. All CT scans at this location are performed using CT dose reduction for ALARA by means of automated exposure control. COMPARISON: 01/12/2018 FINDINGS: CEREBRAL PARENCHYMA: No significant abnormality. No acute territorial infarct. HEMORRHAGE: None. EXTRA-AXIAL SPACES: Normal in size and morphology for the patient's age. VENTRICULAR SYSTEM: Normal in size and morphology for the patient's age. MIDLINE SHIFT OR HERNIATION: None. CEREBELLUM / BRAINSTEM: No significant abnormality. CALVARIUM: No significant abnormality. ORBITS: Normal as visualized. PARANASAL SINUSES / MASTOID AIR CELLS: 1 cm mucous retention cyst in the superior right maxillary sin us is unchanged. The remaining paranasal sinuses and mastoid air cells are adequately aerated. SOFT TISSUES of HEAD: No significant abnormality. ADDITIONAL FINDINGS: None. IMPRESSION: Normal CT brain. 1 cm mucous retention cyst in the right maxillary sinus. No change since 01/12/2018. Signer Name: Martell Griffin Jr, MD Signed: 01/20/2019 11:10 AM Workstation Name: [id number]
[2019-01-20 11:30] VITALS: BP 154/94
[2019-01-20 11:43] LABS: HCG Qualitative,Urine Negative (Negative)
[2019-01-20 12:26] LABS: Color,Urine Yellow (Yellow)
[2019-01-20 12:27] LABS: Bilirubin,Urine Negative (Negative); Blood,Urine Small (Negative); Urobilinogen,Urine 0.2 mg/dL (<2.0)
[2019-01-20 12:28] LABS: Bacteria,Urine 1+ /HPF (Negative)
== END 2019-01-20 11:53 | disposition home or self-care (01) ==
LOC: ED 08:42
DX: R51 Headache (principal); I10 Essential (primary) hypertension; Z86.711 Personal history of pulmonary embolism
CPT/HCPCS: 36415; 70450; 80048; 81001; 81025; 84703; 85027; 96372; 99284; J1885

== ENCOUNTER 2019-05-20 21:45 | Emergency (ER) | payer OTHER ==
--- NOTE | 2019-05-20 22:14 | Emergency Department Report ---
Blank Doc - Documentation Documentation: 39-year-old female that presents with SOB and unable to take a breath. This initial assessment/diagnostic orders/clinical plan/treatment(s) is/are subject to change based on patient's health status, clinical progression and re- assessment by fellow clinical providers in the ED. Further treatment and workup at subsequent clinical providers discretion. Patient/guardians urged not to elope from the ED as their condition may be serious if not clinically assessed and managed. Initial orders include: 1- Patient sent to MAIN ED for further evaluation and treatment 2- cardiac workup
[2019-05-20 23:09] LABS: Basophils # (Auto) 0.1 K/mm3 (0.0-0.1); Basophils % (Auto) 0.9 % (0.0-1.8); Eosinophils # (Auto) 0.4 K/mm3 (0.0-0.4); Eosinophils % (Auto) 5.1 % (0.0-4.3); Hematocrit 33.2 % (30.3-42.9); Hemoglobin 10.6 gm/dl (10.1-14.3); Lymphocytes # (Auto) 2.6 K/mm3 (1.2-5.4); Mean Corpuscular HGB Conc 32 % (30-34); Monocytes # (Auto) 0.7 K/mm3 (0.0-0.8); Monocytes % (Auto) 9.9 % (0.0-7.3); Platelet Count 481 K/mm3 (140-440); Red Blood Count 5.13 M/mm3 (3.65-5.03)
[2019-05-20 23:11] LABS: Mean Corpuscular Volume 65 fl (79-97); Red Cell Distribution Width 20.3 % (13.2-15.2)
[2019-05-20 23:35] LABS: Alanine Aminotransferase 31 units/L (7-56); Albumin 3.8 g/dL (3.9-5); BUN/Creatinine Ratio 15; Blood Urea Nitrogen 15 mg/dL (7-17); Calcium 9.4 mg/dL (8.4-10.2); Hemolysis Index 2
--- NOTE | 2019-05-21 00:19 | XRay Report ---
CHEST 2 VIEWS INDICATION / CLINICAL INFORMATION: Chest Pain. COMPARISON: 01/12/2018 FINDINGS: SUPPORT DEVICES: None. HEART / MEDIASTINUM: No significant abnormality. LUNGS / PLEURA: No significant pulmonary or pleural abnormality. No pneumothorax. ADDITIONAL FINDINGS: No significant additional findings. IMPRESSION: 1. No acute findings. Signer Name: Garrett Loera MD Signed: 05/21/2019 12:15 AM Workstation Name: [id number]
== END 2019-05-21 01:45 | disposition left against medical advice (07) ==
LOC: ED 21:45
DX: R06.02 Shortness of breath (principal); Z53.21 Procedure and treatment not carried out due to patient leaving prior to being seen by health care provider
CPT/HCPCS: 36415; 71046; 80053; 84484; 84703; 85025; 93005; 93010

== ENCOUNTER 2019-05-24 23:15 | Emergency (ER) | payer SELFPAY ==
[2019-05-24 23:31] VITALS: BP 150/108
[2019-05-25] MEDS ORDERED: IBUPROFEN 800 MG TAB PO ONE (01:00)
== END 2019-05-25 03:31 | disposition left against medical advice (07) ==
LOC: ED 23:15
DX: K08.89 Other specified disorders of teeth and supporting structures (principal); Z53.21 Procedure and treatment not carried out due to patient leaving prior to being seen by health care provider

== ENCOUNTER 2019-05-25 09:00 | Emergency (ER) | payer SELFPAY ==
[2019-05-25 09:31] VITALS: BP 150/99
== END 2019-05-25 11:25 | disposition left against medical advice (07) ==
LOC: ED 09:00
DX: K13.79 Other lesions of oral mucosa (principal); Z53.21 Procedure and treatment not carried out due to patient leaving prior to being seen by health care provider

== ENCOUNTER 2019-08-01 03:44 | Emergency (ER) | payer OTHER ==
[2019-08-01 04:06] VITALS: BP 153/106
[2019-08-01 05:01] LABS: Basophils # (Auto) 0.1 K/mm3 (0.0-0.1); Basophils % (Auto) 1.9 % (0.0-1.8); Eosinophils # (Auto) 0.3 K/mm3 (0.0-0.4); Eosinophils % (Auto) 4.3 % (0.0-4.3); Lymphocytes % (Auto) 28.7 % (13.4-35.0); Mean Corpuscular HGB Conc 32 % (30-34); Monocytes # (Auto) 0.7 K/mm3 (0.0-0.8); Monocytes % (Auto) 9.8 % (0.0-7.3); Platelet Count 461 K/mm3 (140-440); Red Blood Count 5.15 M/mm3 (3.65-5.03); Red Cell Distribution Width 19.8 % (13.2-15.2)
[2019-08-01 05:04] LABS: Mean Corpuscular Volume 66 fl (79-97)
[2019-08-01 05:15] LABS: INR 1.07 (0.87-1.13)
[2019-08-01 05:16] LABS: Partial Thromboplastin Time 30.9 Sec. (24.2-36.6)
[2019-08-01 05:17] LABS: Alanine Aminotransferase 24 units/L (7-56); Albumin 3.6 g/dL (3.9-5); BUN/Creatinine Ratio 23; Blood Urea Nitrogen 18 mg/dL (7-17); Calcium 9.1 mg/dL (8.4-10.2); Hemolysis Index 54
--- NOTE | 2019-08-01 08:40 | Emergency Department Report ---
ED General Adult HPI - General Chief complaint: Extremity Injury, Lower Stated complaint: LT LEG PAIN Time Seen by Provider: 08/01/19 07:34 Source: patient Mode of arrival: Ambulatory Limitations: No Limitations - History of Present Illness Initial comments: 39-year-old obese -Portuguese female with past medical history of hypertension, pulmonary embolism in 2016 and morbid obesity presents emerged department complaining of pain and swelling to the left leg for about 1 to 2 hours prior to arrival. States that she is no longer taking blood thinners and worried she may have developed a blood clot to her leg she reports no fever, chills, sweats no hemoptysis no hematemesis no hematochezia no orthopnea. -: Gradual Radiation: non-radiation Quality: dull Consistency: constant Improves with: none Worsens with: none Associated Symptoms: other. denies: confusion, chest pain, diaphoresis, loss of appetite, malaise, nausea/vomiting, shortness of breath, syncope, weakness - Related Data Previous Rx's Medication Instructions Recorded Last Taken Type Amoxicillin [Amoxicillin CAP] 250 mg PO Q8H #30 capsule 01/15/18 Unknown Rx Aspirin [Aspirin BABY CHEW TAB] 81 mg PO QDAY #30 tab.chew 01/15/18 Unknown Rx AtorvaSTATin [Lipitor] 40 mg PO QHS #30 tablet 01/15/18 Unknown Rx Famotidine [Pepcid] 20 mg PO BID #60 tablet 01/15/18 Unknown Rx Losartan [Cozaar] 100 mg PO QDAY #30 tablet 01/15/18 Unknown Rx Meclizine [Antivert] 25 mg PO Q8H PRN #30 tablet 01/15/18 Unknown Rx amLODIPine 10 mg PO DAILY #30 tab 01/15/18 Unknown Rx hydroCHLOROthiazide [HCTZ] 25 mg PO QDAY #30 tablet 01/15/18 Unknown Rx labetaloL [Labetalol 100mg TAB] 300 mg PO Q8H #90 tablet 01/15/18 Unknown Rx metroNIDAZOLE [Flagyl TAB] 250 mg PO Q8H #30 tablet 01/15/18 Unknown Rx oxyCODONE /ACETAMINOPHEN [Percocet 1 tab PO Q6H PRN #10 tablet 01/15/18 Unknown Rx 5/325 mg] Butalb/Acetaminophen/Caffeine 1 cap PO Q6HR PRN #9 cap 01/20/19 Unknown Rx [Fioricet 50-300-40 mg CAP] predniSONE [Deltasone] 20 mg PO DAILY #5 tablet 01/20/19 Unknown Rx Allergies Allergy/AdvReac Type Severity Reaction Status Date / Time No Known Allergies Allergy Verified 08/29/17 05:48 ED Review of Systems ROS: Stated complaint: LT LEG PAIN Other details as noted in HPI Comment: All other systems reviewed and negative ED Past Medical Hx - Past Medical History Hx Hypertension: Yes Hx Congestive Heart Failure: No Hx Diabetes: No Hx Pulmonary Embolism: Yes Hx Asthma: No Hx COPD: No Additional medical history: HEART MURMUR/ PE 2016. PCOS, Morbid Obesity - Surgical History Additional Surgical History: ECTOPIC /L TUBE REMOVAL 2016 - Social History Smoking Status: Never Smoker Substance Use Type: None - Medications Home Medications: Home Medications Medication Instructions Recorded Confirmed Last Taken Type Amoxicillin [Amoxicillin CAP] 250 mg PO Q8H #30 capsule 01/15/18 Unknown Rx Aspirin [Aspirin BABY CHEW TAB] 81 mg PO QDAY #30 tab.chew 01/15/18 Unknown Rx AtorvaSTATin [Lipitor] 40 mg PO QHS #30 tablet 01/15/18 Unknown Rx Famotidine [Pepcid] 20 mg PO BID #60 tablet 01/15/18 Unknown Rx Losartan [Cozaar] 100 mg PO QDAY #30 tablet 01/15/18 Unknown Rx Meclizine [Antivert] 25 mg PO Q8H PRN #30 tablet 01/15/18 Unknown Rx amLODIPine 10 mg PO DAILY #30 tab 01/15/18 Unknown Rx hydroCHLOROthiazide [HCTZ] 25 mg PO QDAY #30 tablet 01/15/18 Unknown Rx labetaloL [Labetalol 100mg TAB] 300 mg PO Q8H #90 tablet 01/15/18 Unknown Rx metroNIDAZOLE [Flagyl TAB] 250 mg PO Q8H #30 tablet 01/15/18 Unknown Rx oxyCODONE /ACETAMINOPHEN [Percocet 1 tab PO Q6H PRN #10 tablet 01/15/18 Unknown Rx 5/325 mg] Butalb/Acetaminophen/Caffeine 1 cap PO Q6HR PRN #9 cap 01/20/19 Unknown Rx [Fioricet 50-300-40 mg CAP] predniSONE [Deltasone] 20 mg PO DAILY #5 tablet 01/20/19 Unknown Rx ED Physical Exam - General Limitations: No Limitations General appearance: alert, in no apparent distress - Head Head exam: Present: atraumatic, normocephalic - Eye Eye exam: Present: normal appearance, PERRL, EOMI Pupils: Present: normal accommodation - ENT ENT exam: Present: normal exam, normal orophraynx, mucous membranes moist - Neck Neck exam: Present: normal inspection, full ROM - Respiratory Respiratory exam: Present: normal lung sounds bilaterally. Absent: respiratory distress, wheezes, rales, rhonchi, accessory muscle use - Cardiovascular Cardiovascular Exam: Present: regular rate, normal rhythm. Absent: systolic murmur, diastolic murmur, rubs, gallop - GI/Abdominal GI/Abdominal exam: Present: soft, normal bowel sounds. Absent: distended, tenderness, guarding, hyperactive bowel sounds, hypoactive bowel sounds, organomegaly - Extremities Exam Extremities exam: Present: tenderness, normal capillary refill, pedal edema, calf tenderness (Patient also wearing tight pants at the popliteal fossa region (advised her to pull her pant leg down towards the ankle)) - Back Exam Back exam: Present: normal inspection - Neurological Exam Neurological exam: Present: alert, oriented X3 - Psychiatric Psychiatric exam: Present: normal affect, normal mood - Skin Skin exam: Present: warm, dry, intact, normal color. Absent: rash ED Course Vital Signs 08/01/19 04:02 Temperature 98.0 F Pulse Rate 103 H Respiratory 18 Rate Blood Pressure 153/106 O2 Sat by Pulse 98 Oximetry ED Medical Decision Making - Lab Data Result diagrams: 08/01/19 04:26 08/01/19 04:26 - Medical Decision Making The patient is oriented to person, place, and time, has the capacity to make decisions regarding the medical care offered. The patient speaks coherently and exhibits no evidence of having an altered level of consciousness or alcohol or drug intoxication to a point that would impair judgment. They respond knowingly to questions about recommended treatment and alternate treatments including no further testing or treatment; participate in diagnostic and treatment decisions by means of rational thought processes; and understand the items of minimum basic medical treatment information with respect to that treatment (the nature and seriousness of the illness, the nature of the treatment, the probable degree and duration of any benefits and risks of any medical intervention that is being recommended, and the consequences of lack of treatment, and the nature, risks, and benefits of any reasonable alternatives). I have reviewed the relevant issues with the patient. They are aware of the suspected diagnosis suggested by screening exam, [DVT_], based upon the initiated medical screening exam. The patient acknowledges understanding of the reasons for recommendations regarding medical treatment, medical testing, and further monitoring and observation. The recommended medical care being refused has been discussed with the patient and is [_venous Doppler]. The risks of re fusing recommended care that were disclosed and acknowledged by the patient are loss of current lifestyle, permanent mental impairment, and . The patient understands the relevant information of the nature of their medical condition, as well as the risks, benefits, and treatment alternatives (including non-treatment), consequences of refusing care, and can competently communicate a rational explanation about their choice of care options. [Discharge instructions were provided to the patient.] The patient understands they are welcome to return to the hospital at any time to receive the r ecommended care or any other care at any time, regardless of their ability to pay for such care. Critical care attestation.: If time is entered above; I have spent that time in minutes in the direct care of this critically ill patient, excluding procedure time. ED Disposition Clinical Impression: Swelling of left lower extremity, Hypertension Disposition: [id number] LEFT AGAINST MED ADVICE Is pt being admited?: No Does the pt Need Aspirin: No Condition: Undetermined Instructions: Hypertension (ED) Referrals: PRIMARY CARE, [Primary Care Provider] - 3-5 Days Forms: AMA Form
== END 2019-08-01 08:20 | disposition left against medical advice (07) ==
LOC: ED 03:44
DX: I10 Essential (primary) hypertension (principal); M79.89 Other specified soft tissue disorders; Z79.2 Long term (current) use of antibiotics; Z79.82 Long term (current) use of aspirin; Z79.899 Other long term (current) drug therapy; Z98.890 Other specified postprocedural states
CPT/HCPCS: 36415; 80053; 85025; 85610; 85730; 99283

== ENCOUNTER 2021-02-17 22:17 | Emergency (ER) | payer SELFPAY ==
[2021-02-17 23:38] VITALS: BP 143/91
[2021-02-18 00:30] LABS: Alanine Aminotransferase 27 units/L (7-56); Albumin 3.7 g/dL (3.9-5); BUN/Creatinine Ratio 12; Blood Urea Nitrogen 11 mg/dL (7-17); Calcium 9.7 mg/dL (8.4-10.2); Hemolysis Index 43
[2021-02-18 00:38] LABS: Hematocrit 33.9 % (30.3-42.9); Hemoglobin 10.8 gm/dl (10.1-14.3); Mean Corpuscular HGB Conc 32 % (30-34); Mean Corpuscular Volume 71 fl (79-97); Platelet Count 489 K/mm3 (140-440); Red Blood Count 4.76 M/mm3 (3.65-5.03); Red Cell Distribution Width 18.3 % (13.2-15.2)
[2021-02-18 00:44] LABS: Bacteria,Urine 1+ /HPF (Negative); Bilirubin,Urine NEG (Negative); Blood,Urine LG (Negative); Color,Urine Yellow (Yellow); Mucus,Urine FEW /HPF; Protein,Urine <15 mg/dL mg/dL (Negative)
== END 2021-02-18 06:03 | disposition left against medical advice (07) ==
LOC: ED 22:17
DX: O26.859 Spotting complicating pregnancy, unspecified trimester (principal); M54.9 Dorsalgia, unspecified; Z53.21 Procedure and treatment not carried out due to patient leaving prior to being seen by health care provider
CPT/HCPCS: 36415; 80053; 81001; 84702; 85027; 86900; 86901